=== PATIENT | male | born 1960 | race Caucasian/White ===

== ENCOUNTER 2016-09-05 10:45 | Emergency (ER) | payer MEDICARE ==
[~2016-09-05] VITALS: Ht 175.3 cm; Wt 75.0 kg
[2016-09-05 10:47] VITALS: BP 141/83; PULSE 99; RESP 18; O2SAT 100
--- NOTE | 2016-09-05 11:04 | ED.REPORT ---
HPI-Back Pain 40 and Over Date of Service Sep 05, 2016 ED Provider: Nam Green MD 56 year old male presents to the ER complaining of acute on chronic low back pain onset yesterday. Associated symptoms include transient left side sciatica symptoms. Patient denies bowel or urinary incontinence, fever, chills, and recent IV drug use. He reports a distant history of spine surgery, L5 discectomy in 1995, with follow-up procedure that left residual pieces of bone that periodically impinge on his spinal nerves, causing similar symptoms. This is similar to his previous back pain exacerbations. Nursing Notes Stated Complaint: BACK PAIN Chief Complaint: Back Pain or Injury Nursing Notes Reviewed: Yes Allergies: Coded Allergies: No Known Allergies (Verified Allergy, Unknown, 12/15/14) No Active Prescriptions or Reported Meds General Time Seen by MD: 11:02 Chief Complaint Back pain, Lumbar pain Hx Obtained From: Patient Arrived By: Walk-in Sudden in Onset?: No Onset Occurred: Yesterday Symptom Duration: Since onset Caused by: Aggravated old injury Location: : Spinal lumbar area Quality: Painful Severity: Current: Moderate Severity: Maximum: Moderate Associated with: Reports: Tingling left lower ext, Weakness left lower ext, Denies: Incontinence bladder, Incontinence bowel Pertinent Negative: Pt denies other symptoms Similar Sx Previous: Yes Past Medical History Past Medical History Chronic back pain Past Surgical History Reports: Back/neck surgery Smoking History Current Every Day Smoker Social History Alcohol Use: "Social" Drug Use: IV drugs Ambulatory Status Independent Review of Systems Constitutional: Denies: Chills, Fever Respiratory: Denies: Non-productive cough, Shortness of breath Cardiovascular: Denies: Chest pain GI: Denies: Abdominal pain, Nausea, Vomiting Musculoskeletal: Reports: Back pain, Extremity pain, Lumbar pain, Denies: Joint pain, Neck pain, Thoracic pain Neurologic: Reports: Focal weakness (Left leg), Numbness, Denies: Bladder dysfunction, Bowel dysfunction Complete sys rev & neg: except as marked. Physical Exam Initial Vital Signs Vital Signs (First) Date Time Temp Pulse Resp B/P Pulse Ox O2 Delivery O2 Flow Rate FiO2 09/05/16 10:47 36.8 99 18 141/83 100 Initial VS: Reviewed Head / Eyes: Atraumatic, Normocephalic Neck: Supple, Non-tender, Full range of motion Extremities: Vascular intact, Neuro intact, No swelling, No tenderness Skin: Warm, Dry, No cyanosis Psychiatric: Mood/affect normal, Behavior normal, Normal thought content General/Constitutional: Awake, Alert, Well developed, Well nourished Respiratory / Chest: Breath sounds NL, Breath sounds = bilat, No respiratory distress, No rales, No rhonchi, No wheezing Cardiovascular: Heart rate NL, Regular rhythm, Heart sounds NL, No murmurs, Peripheral circulation NL Abdomen: Soft, Non-tender, No guarding, No rebound, No distention Back: Full range of motion, No CVA tenderness Flank / Spine / Paraspinal: Positive: Lumbar spine tender... (Low), Negative: Sacral spine tender..., Thoracic spine tender... Well healed lower lumbar surgical scar. Neurologic: Oriented X3, Speech NL, No motor deficits, No sensory deficits, Reflexes equal bilat Strength 5/5 in all 4 extremities. Re-Eval/Medical Decision Med Decision/Clinical Course In summary, the patient is a 56-year-old male with past medical history significant for remote L5 surgery secondary to traumatic injury, who presents with back pain exacerbation that is similar nature to previous exacerbations of his back pain. He has intermittent shooting pains down his left leg. Our primary and secondary assessment reveals an awake, alert patient in no acute distress. Hemodynamically stable and afebrile. Exam reveals normal neurologic exam of the lower extremities. Given this immunocompetent, afebrile, patient's history and exam, suspect muscle strain or spasm in addition to left-sided sciatica. No concerning signs or symptoms suggestive of cauda equina, cord compression, epidural abscess or other neurologic emergency. History not suggestive of referred intraabdominal pathology or vascular emergency. There is no history of significant recent trauma, fever, incontinence, unexplained weight loss, cancer history, long-term steroid use or recent IV drug use. And given the patient's young age, I do not feel imaging is warranted at this time. Given the patient's workup, feel they are safe for discharge with conservative management. The patient was given intramuscular Toradol for symptom control while here in the ER. Have discussed with the patient results of workup, indications for return including: motor weakness in the lower extremities and/or bowel or bladder incontinence. Also emphasized the need for PCP follow up. They understand and agree with the plan. Re-Evaluation/Progress : Time of Eval: 12:00 Re-Evaluation/Progress Note: Discussed plan to discharge. Patient is amenable to the plan. Return precautions given. All other questions addressed. Counseled Regarding: Diagnosis, Need for follow-up, When/why to return to ED Discharge & Departure Impression: Primary Impression: Low back pain Chronicity: acute Back pain laterality: unspecified Sciatica presence: with sciatica Sciatica laterality: sciatica of left side Qualified Code: M54.42 - Lumbago with sciatica, left side Additional Impressions: History of back surgery History of intravenous drug use in remission Sciatica of left side Disposition: Home Discharge Condition All VS Reviewed: Yes Condition: Stable Patient Instructions: Acute Low Back Pain (ED) Additional Instructions: Thank you for seeking care at emergency room. It is difficult for us to make definitive diagnoses in the ED but we believe that you are experiencing chronic low back pain. Our primary goal today in the ED was to evaluate you for any life-threatening conditions. Your evaluation was reassuring. Try stretching, and apply ice packs and hot packs alternately to treat symptoms. Take ibuprofen 600mg three times daily for up to 7 days for your pain. You should follow-up with your primary doctor in the next week. You should return to the ED immediately if you develop worsening back pain or leg numbness, weakness, loss of control of your bladder or bowels, inability to void urine, or any other concerning signs or symptoms. Thank you for letting us partake in your care today. Referrals: [facility]CP (PCP) Fernandaibtimothy Attestation Portions of this note were transcribed by Nancy Ansari. I, Dr. Green, personally performed the history, physical exam and medical decision-making; I reviewed and confirmed the accuracy of the information in the transcribed note. Signed by: Leobardo Green, 09/05/2016 and 12:15 Nam Green MD Sep 05, 2016 11:04 NANCY ANSARI Sep 05, 2016 12:05
== END 2016-09-05 12:05 | disposition home or self-care (01) ==
LOC: SED 10:45
DX: M54.42 Lumbago with sciatica, left side (principal); F17.200 Nicotine dependence, unspecified, uncomplicated; Z98.890 Other specified postprocedural states; F19.21 Other psychoactive substance dependence, in remission